=== PATIENT | male | born 1985 | race Caucasian/White ===

== ENCOUNTER → 2022-04-16 | Outpatient (CLI) | payer OTHER | LOC: KOH-I 15:15 | DX: M25.562 Pain in left knee (principal); M25.462 Effusion, left knee; M23.52 Chronic instability of knee, left knee; S83.512A Sprain of anterior cruciate ligament of left knee, initial encounter; S80.12XA Contusion of left lower leg, initial encounter; S83.282A Other tear of lateral meniscus, current injury, left knee, initial encounter; S83.242A Other tear of medial meniscus, current injury, left knee, initial encounter; S83.412A Sprain of medial collateral ligament of left knee, initial encounter; X58.XXXA Exposure to other specified factors, initial encounter | CPT/HCPCS: 73721 ==